=== PATIENT | female | born 1990 | race Caucasian/White ===

== ENCOUNTER 2019-08-07 01:27 | Emergency (ER) | payer OTHER, MEDICAID, SELFPAY ==
[2019-08-07 01:52] VITALS: BP 128/70; PULSE 106; RESP 16; TEMP 37.1; O2SAT 100; BMI 27.4
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
[2019-08-07] MEDS: TET,DIPH,PERTUSS(ACELL),VAC/PF 0.5 ML SYRINGE IM (04:30)
[2019-08-07] MEDS: IBUPROFEN 400 MG TABLET 800 MG PO (04:32)
[2019-08-07 04:33] VITALS: BP 114/67; PULSE 101; O2SAT 96
== END 2019-08-07 04:34 | disposition home or self-care (01) ==
PROVIDERS: Emergency Provider Emergency Medicine
DX: Z02.89 Encounter for other administrative examinations (principal); S50.312A Abrasion of left elbow, initial encounter; S80.01XA Contusion of right knee, initial encounter; Z23 Encounter for immunization; V49.40XA Driver injured in collision with unspecified motor vehicles in traffic accident, initial encounter
CPT/HCPCS: 73080; 90471; 99282; 99283; 90715